=== PATIENT | female | born 1950 | race Caucasian/White ===

== ENCOUNTER 2017-03-05 07:10 | Day surgery (SDC) | payer MEDICARE, OTHER ==
[~2017-03-05] VITALS: Ht 157.5 cm; Wt 68.5 kg
[~2017-03-05 07:10] MED LIST: 0.9% Sodium Chloride 1,000 ML IV SCH; ATOR80TA PO; LOSA100T29 PO; METO-272 PO; OMEP20CA11 PO; SERT100T9 PO; Sodium Chloride LOK Flush 10 mL Syringe IV PRN; fentaNYL-PF 50 mCg/mL 2 mL Inj IVPUSH PRN
[2017-03-05] MEDS ORDERED: fentaNYL-PF 50 mCg/mL 2 mL Inj IVPUSH ONE (07:11)
[2017-03-05] MEDS ORDERED: FERR325T39 PO (07:45)
[2017-03-05 08:00] VITALS: BP 193/83; PULSE 72; RESP 14; O2SAT 100
[2017-03-05 08:30] VITALS: BP 96/57; PULSE 62; RESP 16; O2SAT 92
[2017-03-05 08:40] VITALS: BP 99/54; PULSE 61; RESP 16; O2SAT 100
[2017-03-05 08:50] VITALS: BP 93/69; PULSE 70; RESP 16; O2SAT 95
--- NOTE | 2017-03-06 00:37 | ENDO ---
[address] [address] ENDOSCOPY PROCEDURE PATIENT: LUCILLE RODRIGUEZ : 1950 MR#: [id number] ADMIT: 03/05/2017 JOB ID: [id number] DATE: 03/05/2017 OPERATION(S): 1. Esophagogastroduodenoscopy with biopsy. 2. Colonoscopy. PREOPERATIVE DIAGNOSIS(ES): 1. Iron deficiency anemia. 2. Gastroesophageal reflux disease. 3. Family history of colon cancer. POSTOPERATIVE DIAGNOSIS(ES): 1. Mild nonerosive gastritis. 2. Small internal hemorrhoids. ANESTHESIA: Fentanyl 125 mcg, Versed 6 mg IV administered. COMPLICATION: None. BLOOD LOSS: Minimal. DESCRIPTION OF PROCEDURE: After risks and benefits explained to the patient, informed consent was obtained. After anesthesia administered, upper endoscope was inserted in mouth intubating the esophagus, stomach, second portion of duodenum. Mucosa carefully examined. After procedure was done, the scope was withdrawn and the procedure terminated. Colonoscope was inserted from the rectum to the cecum. Mucosa carefully examined. Prep of the patient was excellent. After the procedure was done, the scope was withdrawn and the procedure terminated. FINDINGS: Upon inspection of the esophagus, the esophagus was normal without masses, ulcers, or lesions. Z-line located 35 cm from the incisors. Upon entering the stomach, there was mild nonerosive gastritis that was seen. No masses, ulcers, or lesions were recognized. Retroflexion was normal. Duodenal bulb, first and second portion normal. Biopsies taken in the duodenum, antrum, body and distal esophagus. Upon inspection of the anus, no masses, hemorrhoids, ulcers, or fissures that were seen. Throughout the entire examination, there were no polyps, masses, or lesions. Several attempts were made to get into the terminal ileum without success. Retroflexion showed small internal hemorrhoids. IMPRESSION: 1. Mild nonerosive gastritis. 2. Small internal hemorrhoids. RECOMMENDATIONS: 1. Await pathology results. Repeat colonoscopy in five years given family history of colon cancer. 2. Consider outpatient upper GI small bowel series. 3. Follow up with [facility] in the [facility] as an outpatient.
--- NOTE | 2017-03-09 14:46 | PATH ---
SURGICAL PATHOLOGY Attending Physician:Mike Valenzuela MD CASE STATUS: Signed Out PATIENT NAME: LUCILLE RODRIGUEZ PID: [id number] : 1950 DATE COLLECTED:03/05/2017 19:00 SPECIMEN: 1: Duodenum, Biopsy 2: Stomach, Antrum, Biopsy 3: Gastric, Biopsy 4: Esophagus, Biopsy CLINICAL HISTORY: 1). DUODENAL BIOPSY 2). ANTRUM BIOPSY 3). GASTRIC BODY BIOPSY 4). DISTAL ESOPHAGUS BIOPSY FINAL DIAGNOSIS: 1. Duodenum Biopsy: Duodenal mucosa with no diagnostic abnormality. Negative for active inflammation, features of sprue, dysplasia, and malignancy. 2. Antrum, Biopsy: Portions of gastric antral and body-type mucosa with no diagnostic abnormality. No definite H. pylori organisms identified by H&E stain. Immunohistochemistry studies pending; results will be reported as an addendum. Negative for intestinal metaplasia, dysplasia or malignancy. 3. Gastric Body Biopsy: Portions of gastric body-type mucosa with no diagnostic abnormality. Negative for H. pylori organisms by H&E stain. Negative for intestinal metaplasia, dysplasia or malignancy. 4. Distal Esophagus, Biopsy: Portions of squamocolumnar jundtional mucosa with no diagnostic abnormality. Negative for intestinal metaplasia, dysplasia, and malignancy. Very scant columnar epithelium is present for evaluation. ICD10: K29.7 GROSS DESCRIPTION: The specimen is received in four formalin filled containers labeled with the patient's name. 1). The specimen is sublabeled "duodenal" and consists of 2 portions of tissue which aggregate to 0.3 x 0.3 x 0.2 CM. The specimen is entirely submitted in cassette 1A. 2). The specimen is sublabeled "antrum" and consists of 2 portions of tissue which aggregate to 0.3 x 0.3 x 0.2 CM. The specimen is entirely submitted in cassette 2A. 3). The specimen is sublabeled "gastric body" and consists of 2 portions of tissue which aggregate to 0.4 x 0.3 x 0.2 CM. The specimen is entirely submitted in cassettes 3A. 4). The specimen is sublabeled "distal esophagus" and consists of 2 portions of tissue which aggregate to 0.2 x 0.2 x 0.2 CM. The specimen is entirely submitted in cassette 4A. 03/05/2017 [facility] ICD-9 CODES: CPT CODES: 1: 96569 2: 17173, 41304 3: 36981 4: 09924 PROCEDURE/ADDENDA: Addendum SPI Addendum Diagnosis 2: Antrum, Biopsy: Negative for H. pylori organisms by immunohistochemistry studies. Addendum Comment {Not Entered} Electronically Signed Out Samantha Ya MD Electronically Signed Out Samantha Ya MD [facility], [place] [address] Technical component performed at [facility], [facility] [address], [place], [address]
== END 2017-03-05 23:59 | disposition home or self-care (01) ==
LOC: END 07:10
PROVIDERS: ATTEND Internal Medicine Gastroenterology
DX: D50.9 Iron deficiency anemia, unspecified (principal); K21.9 Gastro-esophageal reflux disease without esophagitis; K29.70 Gastritis, unspecified, without bleeding; Z80.0 Family history of malignant neoplasm of digestive organs; I10 Essential (primary) hypertension; E78.5 Hyperlipidemia, unspecified; K64.8 Other hemorrhoids
CPT/HCPCS: 43239; 45378; 88305; 88342; 99153; G0500; J2250; J3010; J7030